=== PATIENT | female | born 1940 | race Caucasian/White ===

== ENCOUNTER → 2022-09-07 | Outpatient (CLI) | payer MEDICARE, SELFPAY ==
[2022-09-07 12:17] LABS: Platelet Count 245 K/mm3 (150-450)
== END | disposition home or self-care (01) ==
PROVIDERS: PCP Family Medicine; Referring Provider Internal Medicine Critical Care Medicine; Visit Provider Internal Medicine Critical Care Medicine
DX: R91.1 Solitary pulmonary nodule (principal)
CPT/HCPCS: 36415; 85049

== ENCOUNTER → 2022-09-12 | Outpatient (CLI) | payer MEDICARE, SELFPAY ==
[2022-09-12] VITALS (13 sets, daily range): BP systolic 129–201; BP diastolic 56–97; PULSE 60–78; RESP 11–25; O2SAT 90–100; BMI 32.9
--- NOTE | 2022-09-12 | ASPIGT_PTH ---
PATIENT: KENAN VINES LOC: [place] U#:[id number] AGE/SX: 82/F ROOM: RE09/12/[address]: Dr. Zeeshan Gates DO : 1940 BED: DIS: 09/12/2022 SPEC #: [id number] RECD: 09/12/22 10:30 STATUS: JUAN CARLOS RAHEL #: [id number] OSEAS: 09/12/22 00:[address]: Zeeshan Gates DEPT: SURGICAL PATHOLOGY RECD BY: Aisha Lance ENTERED: 09/12/22 11:13 SP TYPE: ASP RAD OTHR DR: Arina Jackson PA-C Tissues: Lung, NOS Procedures: FNA Specimen Adequacy Trichrome (control) Special Stain Group II Surgery Specimen Level IV Imprint (control) HEADER OPERATION: Right upper lobe lung, CT-guided biopsy PRE-OP DIAGNOSIS: Right upper lobe lung nodule TISSUE SUBMITTED: Right upper lobe lung mass 20-gauge core x5 MICROSCOPIC DIAGNOSIS Right upper lobe lung mass, CT-guided core biopsy: Lung parenchymal tissue with interstitial fibrosis, chronic inflammation, pneumocyte type 2 hyperplasia and bronchial metaplasia. Negative for malignancy. See comment. WILIAM:mac 09/13/2022 COMMENT The specimen is evaluated at the time of biopsy by Dr. Combs. Immediate Evaluation = Negative for malignant cells. Trichrome stain with matched control is also used in the evaluation of the specimen. Correlation with clinical, radiologic findings and appropriate follow-up are necessary. Case has been reviewed in consultation with Dr. Banerjee who concurs with the above diagnosis. IDC:AM MICROSCOPIC DESCRIPTION Slides are reviewed. GROSS DESCRIPTION Received in fixative is one container labeled with the patient's name and designated right upper lung. The specimen consists of multiple irregular fragments of pablo soft tissue that in aggregate measure 0.5 x <0.1 x <0.1 cm. The specimen is totally submitted in one cassette. Two touch imprints are prepared at the time of core biopsy. / WILIAM:mac 09/12/2022 TC:3 CPT: 92075, 66543, 24557
--- NOTE | 2022-09-12 08:46 | CT_ITS ---
PROCEDURE: CT GUIDED CORE NEEDLE BIOPSY OF A right upper lobe LUNG LESION INDICATION: Female, 82 years old. Lung Nodule PHYSICIAN: Dr. SUSANNE Gomez CONSENT: Written informed consent was obtained having explained the risks, benefits and alternatives in detail with the patient who accepted the risks and agreed to proceed. Laboratory review and clinical assessment was performed. CONSCIOUS SEDATION PROTOCOL: The Drugs used were: 2 mg Versed, IV., and 50 mcg Fentanyl, IV. The sedation time was: 23 minutes. Conscious sedation was started at 10:10 AM and terminated at 10:33 AM. The conscious sedation protocol was independently monitored. RADIATION DOSAGE (If Supplied By Facility): CTDIvol = ( 17.5 ) mGy, DLP = ( 170.59 ) mGycm Individualized dose optimization techniques were used for this CT. TECHNIQUE: The patient was placed in the pleural position. A noncontrast CT was performed to localize the lesion in the right lung apex . The skin surface was prepped and draped in a sterile fashion. 1% lidocaine was used for local anesthesia. Using CT guidance, a 20-gauge coaxial biopsy device was advanced to the periphery of the lesion. A total of 5 core specimens were obtained. The specimens were placed in a formalin solution. A post procedure CT demonstrated no adverse sequelae or pneumothorax. The patient tolerated the procedure well without adverse event. A negative biopsy does not exclude malignancy. Further imaging or clinical followup based on patient condition and degree of clinical suspicion for malignancy. Suggest rebiopsy, if biopsy results do not match with clinical scenario. CT/Biopsy/Inj or Needle Placement IMPRESSION: 1. CT directed core needle biopsy of the right apical pulmonary nodular lesion using CT image guidance with image documentation as described. Pathology results are pending. 2. Conscious Sedation protocol utilized with independent monitoring. Electronically Signed: David Griffiths MD at 11:20 EST ,
[2022-09-12 08:55] LABS: Prothrombin Time (Protime)PT. 12.9 SECONDS (11.7-14.9)
[2022-09-12 08:56] LABS: Partial Thromboplast Time 25.8 Seconds (24.1-36.2)
[2022-09-12] MEDS: Midazolam 2 MG/2 ML Syringe IV (10:10)
[2022-09-12] MEDS: fentaNYL 100 MCG/2 ML Ampul IV (10:14)
[2022-09-12] MEDS: Lidocaine 2% (20 ml mdv) 20 ML Vial INFILT (10:25)
--- NOTE | 2022-09-12 10:37 | RAD_ITS ---
STUDY: X-RAY CHEST REASON FOR EXAM: Female, 82 years old. Pneumothorax -- Immediately post lung biopsy TECHNIQUE: AP inspiration and expiration views. COMPARISON: None. FINDINGS: There is no evidence of pneumothorax on the immediate postright lung biopsy radiographs. Increased density in the right upper lobe suggestive of a postbiopsy lung contusion. RAD/Chest Insp/Exp 2 View IMPRESSION: No evidence of pneumothorax on the immediate post right lung biopsy radiographs. Electronically Signed: David Griffiths MD at 11:15 EST ,
--- NOTE | 2022-09-12 12:45 | RAD_ITS ---
STUDY: X-RAY CHEST REASON FOR EXAM: Female, 82 years old. Pneumothorax -- 2 hours post lung biopsy TECHNIQUE: AP inspiration and expiration views. COMPARISON: Comparison is made with prior study done earlier in the day. FINDINGS: No evidence of pneumothorax on the 2 hour post right lung biopsy radiographs. The right upper lobe contusion following the percutaneous biopsy is clearing up. RAD/Chest Insp/Exp 2 View IMPRESSION: No evidence of pneumothorax on the 2 hour post right lung biopsy radiographs. Electronically Signed: David Griffiths MD at 12:52 EST ,
== END | disposition home or self-care (01) ==
PROVIDERS: PCP Family Medicine; Referring Provider Internal Medicine Critical Care Medicine; Visit Provider Internal Medicine Critical Care Medicine
DX: J84.10 Pulmonary fibrosis, unspecified (principal); J95.811 Postprocedural pneumothorax; S27.321A Contusion of lung, unilateral, initial encounter; Y84.8 Other medical procedures as the cause of abnormal reaction of the patient, or of later complication, without mention of misadventure at the time of the procedure; Y92.239 Unspecified place in hospital as the place of occurrence of the external cause
CPT/HCPCS: 32408; 36415; 71046; 77012; 85610; 85730; 88172; 88305; 88313; 99156; J7050; A4216; C2613

== ENCOUNTER → 2022-12-19 | Outpatient (CLI) | payer MEDICARE, SELFPAY ==
--- NOTE | 2022-12-19 12:53 | CT_ITS ---
INDICATION: follow lung mass EXAMINATION: CT CHEST WITHOUT CONTRAST - CT Chest W/O Contrast Injection TECHNIQUE: Helically acquired images were obtained of the chest. A radiation dose optimization technique was used for this scan. IV Contrast dosage and agent: None. RADIATION DOSAGE (If Supplied By Facility): CTDIvol = ( 10.53 ) mGy, DLP = ( 370.99 ) mGycm COMPARISON: Chest x-ray 09/12/2022. FINDINGS: LUNGS, PLEURA AND LARGE AIRWAYS: Moderate right upper lobe and mild left upper lobe pleural parenchymal fibrosis. Moderate centrilobular emphysema. There is a bilobed nodule seen in the right upper lobe 2.48 x 1.10 cm. There is a right middle lobe micronodule series 4 image 66 measuring 0.55 cm. Mild inferior right middle lobe fibrosis. Mild fibrosis inferior lingula and medial right lower lobe. THYROID: No thyroid lesions. HEART AND PERICARDIUM: Heart size is normal. No pericardial effusion. CORONARY ARTERIES: Coronary artery calcification on an atherosclerotic vascular calcification LAD. VESSELS: Thoracic aorta is not dilated. MEDIASTINUM AND CHRISTINA: No mediastinal or hilar adenopathy. Esophagus is unremarkable. No hiatal hernia. UPPER ABDOMEN: Bosniak type II cyst with a partially calcified septum in the midpole the left kidney 4 cm in diameter. BONES: No suspicious lytic or blastic abnormality. CT/Chest without Contrast IMPRESSION: Bilobed nodule right upper lobe. Recommend follow-up as per Fleischner Society guidelines. PET/CT may be of complementary benefit. Pulmonary fibrosis detailed above. Atherosclerotic vascular calcification of the coronary arteries. Bosniak type II cyst left kidney. Electronically Signed: Christian Romero MD, VLADIMIR at 19:49 EDT ,
== END | disposition home or self-care (01) ==
LOC: CT 12:52
PROVIDERS: PCP Family Medicine; Referring Provider Nurse Practitioner Acute Care; Visit Provider Nurse Practitioner Acute Care
DX: R91.1 Solitary pulmonary nodule (principal)
CPT/HCPCS: 71250

== ENCOUNTER → 2023-06-10 | Outpatient (CLI) | payer MEDICARE, SELFPAY ==
--- NOTE | 2023-06-10 16:46 | CT_ITS ---
INDICATION: Lung Nodule EXAMINATION: CT CHEST WITHOUT CONTRAST - CT Chest W/O Contrast Injection TECHNIQUE: Helically acquired images were obtained of the chest. A radiation dose optimization technique was used for this scan. IV Contrast dosage and agent: None. COMPARISON: December 19, 2022 CT chest FINDINGS: LUNGS, PLEURA AND LARGE AIRWAYS: There is a pattern of small emphysematous blebs in the lungs especially the lung apices. No within the right upper lobe there is a small cluster of an area of scarring or thickening with an adjacent nodule measuring 4.7 mm stable since prior study. There is a visualized small spiculated mass within the right middle lobe measuring 0.5 x 0.48 cm stable since prior study. No pneumothorax. THYROID: No thyroid lesions. HEART AND PERICARDIUM: There is visualized dense calcifications the level of the mitral valve. There are coronary artery calcifications ,no pericardial effusion. CORONARY ARTERIES: Coronary artery calcification is seen. VESSELS: Aorta is tortuous and partially calcified the descending thoracic aorta measures 2.6 cm. MEDIASTINUM AND CHRISTINA: There is a visualized lymph node in the precarinal space measuring 9.3 mm stable since prior study. There is a minimal hiatal hernia. No hiatal hernia. UPPER ABDOMEN: There are multiple small left-sided peripelvic cyst the largest of which measures 3.5 x 3.4 cm. BONES: Bones are osteopenic. There is multilevel degenerative change in the thoracic spine. CT/Chest without Contrast IMPRESSION: Stable Small nodules in the right apex and right middle lobe for which a follow-up is warranted in 6 months to ensure stability. Could consider follow-up PET scan scan if appropriate. Borderline cardiac enlargement and mitral valve calcification coronary artery disease. Atherosclerotic disease of aorta Multiple sided peripelvic cysts the largest of which measures 3.5 x 3.4 cm. Status post cholecystectomy. Electronically Signed: Tania Laird MD at 5:41 EDT ,
== END | disposition home or self-care (01) ==
PROVIDERS: PCP Family Medicine; Referring Provider Internal Medicine Critical Care Medicine; Visit Provider Internal Medicine Critical Care Medicine
DX: R91.1 Solitary pulmonary nodule (principal)
CPT/HCPCS: 71250